=== PATIENT | female | born 1955 | race Caucasian/White ===

== ENCOUNTER 2016-11-26 01:26 | Inpatient (IN) | payer BC ==
[2016-11-26] VITALS (7 sets, daily range): BP systolic 91–148; BP diastolic 57–85; PULSE 81–111; TEMP 36.5–37; O2SAT 93–96; Ht 167.6 cm; Wt 123.3 kg
[~2016-11-26] VITALS: Ht 167.6 cm; Wt 123.3 kg
[2016-11-26] MEDS ORDERED: NITROGLYCERIN 0.4 MG SL PER TAB CHARGE SL PRN (04:00)
[2016-11-26] MEDS ORDERED: ACETAMINOPHEN 325 MG TAB PO PRN (04:00)
[2016-11-26] MEDS ORDERED: ALUMINUM/MAGNESIUM/SIMETH (MAALOX MAX) 30 ML UDC PO PRN (04:00)
[2016-11-26] MEDS ORDERED: MAGNESIUM HYDROXIDE SUSP 30 ML UDC PO PRN (04:00)
[2016-11-26] MEDS ORDERED: MoRPHine SULFATE 2 MG/ML CARP IV PRN (04:00)
[2016-11-26] MEDS ORDERED: ONDANSETRON INJ 2 MG/ML 2 ML VIAL IV PRN (04:00)
--- NOTE | 2016-11-26 04:14 | History and Physical ---
History & Physical Date & Time of Service: Nov 26, 2016 at 04:02 Chief Complaint: Bilateral Pe, Elevated Troponin Primary Care Physician: Ean Jacobs M.D. History of Present Illness Source: patient, hospital records This is a 61 yo f that is presenting to us from [facility] because of pulmonary emboli. She states that at [id number] today she was walking from the [place]oroast[place] to the car and acutely was SOB. when she reached the car it took her a few minutes to catch her breath. She also felt dizzy with this episode. She drove home with her and when she once again tried to exert herself she was acutely SOB. She was concerned she was having an VA so she took two ASA at home and went to the ED. In the ED she was evaluated and found to have bilateral PE and a slightly elevated troponin. She was given 100 mg of Lovenox at 2343. the hospitalist was contacted and because of the slight elevation in troponin and potential for cath he requested a transfer. She states she feels well without chest pain currently and comfortable on 2 L of oxygen. She mentions that she has a significant family history of antiphospholipid syndrome. Her brother and sister both have this as well as her son. She was tested extensively with [facility] hematology and no anticoag disorders were noted. She has never had a PE/ DVT in the past. She had a hysterectomy and is not on estrogen. She does not smoke. No recent extended travel. Past Medical/Surgical History HTN Depression Thyroid Elevated chol hysterectomy lumpectomy Social History Smoking Status: Never Smoker Smokeless Tobacco Use: No Alcohol Use: occasionally Drug Use: none Marital Status: Housing status: lives with family Occupational Status: retired Allergies Coded Allergies: No Known Allergies (Unverified , 11/26/16) Home Medications Scheduled Bupropion (Wellbutrin-Xl), 150 MG PO DAILY Hydrochlorothiazide (Hctz), 25 MG PO DAILY Latanoprost (Xalatan 0.005% Oph Kaylene), 1 DROPS OP HS Levothyroxine Sodium (Synthroid), 75 MCG PO DAILYBB Lovastatin (Mevacor), 40 MG PO PM Magnesium Oxide (Mag-Ox), 400 MG PO HS Meloxicam (Mobic), 15 MG PO PM Metoprolol Tartrate (Lopressor) (Lopressor), 25 MG PO BID [Lovaza], 1 GM BID Review of Systems Constitutional: No fever Eyes: No worsening of vision ENT: No hearing loss Respiratory: + dyspnea on exertion, + shortness of breath, No cough, No dyspnea at rest, No hemoptysis, No sputum, No wheezing Cardiovascular: No chest pain Abdomen: No constipation, No diarrhea, No nausea, No pain, No vomiting Musculoskeletal: No joint pain, No muscle pain Genitourinary - Female: No dysuria, No hematuria Neurologic: No balance problems, No memory loss, No numbness/tingling, No weakness Psychiatric: No anxiety, No depression symptoms Endocrine: No fatigue Integumentary: No rash Physical Exam General Appearance: WD/WN, no apparent distress, + obese Head: normocephalic, atraumatic Eyes: normal inspection ENT: normal ENT inspection Neck: supple Respiratory/Chest: lungs clear, normal breath sounds, no respiratory distress, no accessory muscle use Cardiovascular: regular rate, rhythm, no murmur Abdomen/GI: normal bowel sounds, non tender, soft Back: normal inspection Extremities/Musculoskelatal: normal inspection, no calf tenderness, + pedal edema (trace pedal edema) Neurologic/Psych: alert, normal mood/affect, oriented x 3 Skin: normal color, warm/dry, no rash Lymphatic: no adenopathy Diagnostics Diagnostic Radiology CT from [facility] revealed filling defects reflective of bilat PE, no infarcts noted EKG bpm 102, qtc 484 sinus tach NSR Impression Assessment and Plan This is a 61 yo f with HTN, hypothyroidism, and a family h/o antiphospholipid syndrome presenting to us from [facility] with elevated troponin and bilateral PE. Acute hypoxic respiratory failure secondary to bilat PE - tele admission - bilat doppler - Lovenox was given at approx 2343, will hold off heparin bolus vs NOAC until 1200 - PT INR PTT - CBC - EKG repeat - CT scan will be sent to radio for upload - NPO Elevated Troponin most likely secondary to right heart strain - repeat troponin and trend - echo Hypokalemia - NSS with KCL - hold HCTZ for now - repeat BMP Hypothyroidism -cont synthroid HTN cont metoprolol, hold HCTZ for now H/O SVT - cont metoprolol Hypercholesterolemia - cont lovastatin DVT Prophylaxis - PE treatment will cover FULL CODE Level of Care Telemetry Resuscitation Status FULL RESUSCITATION VTE Prophylaxis VTE Risk Assessment Done? Y/N: Yes Risk Level: Moderate Given or contraindicated: Other Anticoagulation Social Service Consult None Apply Note Total Time: Critical Care 30 - 74 minutes Additional Copies To Ean Jacobs M.D. Assessment and Plan Attending Addendum: I have physically seen and examined this patient, have directed their medical care, have supervised the medical residents activities, and agree with the H&P as noted above, with the following changes: NONE The patient is awake, well-developed and adequately nourished, alert and oriented 3, normocephalic and atraumatic, lying in bed and in no acute distress. HEENT--PERRL, EOMI, mucous membranes and oropharynx moist. Neck--supple, no JVD or bruits, thyroid normal, trachea midline, no adenopathy. Heart--normal S1 and S2, no extra beats, no murmurs, rubs or gallops. Lungs--clear bilaterally with good air movement, no respiratory distress, no accessory muscle use. Abdomen--normal bowel sounds and soft, nontender and nondistended, no hernias or masses, no organomegaly. Extremities--no cyanosis, clubbing or edema. There are good distal pulses b/l. Dermatologic--normal skin turgor, normal color, warm and dry, no abnormal lymph nodes, no rash. Neurologic--cranial nerves II through XII grossly intact, motor and sensory examination normal. Rheumatologic--normal range of motion, nontender, muscles and joints. Psychiatric--normal affect. Assessment and Plan: Bilateral pulmonary emboli--patient is being admitted to the telemetry unit after transfer from [facility]. She is being scheduled for stat bilateral lower extremity venous Dopplers to assess for DVT. She did receive a single dose of Lovenox 100 mg subcutaneous while in the [facility] emergency department. She will be changed to heparin standard infusion with protocol once the Lovenox is worn off, until it's been determine the exact nature of her cardiac involvement. Elevated troponin/SVT/hypertension/hypokalemia--patient is being admitted to the telemetry unit for serial cardiac enzymes, cardiac rhythm monitoring and a 2 -D echocardiogram with Dopplers. Her elevated troponin is likely secondary to right heart strain, and at that so, no additional workup will be needed. We'll consult cardiology for their opinion as well. We'll continue current dosing of metoprolol, and will hold HCTZ due to mildly low potassium at this time. We'll place on low-dose normal saline with potassium and follow serial BMP and magnesium levels. Hypercholesterolemia--continue lovastatin. Hypothyroidism--continue current dosing of Synthroid.
[2016-11-26] MEDS ORDERED: PATIENT'S ALLERGY INFO NEEDS ENTERED SCH (04:15)
[2016-11-26 04:59] LABS: BASO % 0.2 %; BASO ABS # 0.02 K/uL (0-0.2); COMPLETE YES; EOS % 4.3 %; HEMATOCRIT 42.4 % (37-47); IG% 0.2 %; LYMPH % 34.6 %; MEAN CELL VOLUME 83.1 fL (80-100); MEAN CORPUSCULAR HEMOGLOBIN 28.8 pg (25-34); MEAN CORPUSCULAR HGB CONC 34.7 g/dl (32-36); MONO % 3.3 %; NEUT % 57.4 %; PLATELET COUNT 269 K/uL (130-400); WHITE BLOOD COUNT 8.37 K/uL (4.8-10.8)
[2016-11-26] MEDS ORDERED: LEVO75TA PO (05:01)
[2016-11-26] MEDS ORDERED: BUPRTAB51 PO (05:03)
[2016-11-26] MEDS ORDERED: HYDR25TA4 PO (05:04)
[2016-11-26] MEDS ORDERED: LOVAZA (05:06)
[2016-11-26] MEDS ORDERED: LOVA40TA4 PO (05:07)
[2016-11-26] MEDS ORDERED: METO25TA56 PO (05:07)
[2016-11-26] MEDS ORDERED: MELO7.5T5 PO (05:08)
[2016-11-26] MEDS ORDERED: MAGN400T6 PO (05:09)
[2016-11-26] MEDS ORDERED: LATA0.5S OP (05:10)
[2016-11-26 05:21] LABS: ALT/SGPT 42 U/L (12-78); AST/SGOT 23 U/L (15-37); BLOOD UREA NITROGEN 11 mg/dl (7-18); BUN/CREATININE RATIO 11.3 (10-20); CALCIUM 8.8 mg/dl (8.5-10.1); CARBON DIOXIDE 31 mmol/L (21-32); CHLORIDE 106 mmol/L (98-107); CREATININE 0.94 mg/dl (0.60-1.20); GLUCOSE 110 mg/dl (70-99); POTASSIUM 3.7 mmol/L (3.5-5.1); SODIUM 145 mmol/L (136-145)
[2016-11-26 05:23] LABS: ALB/GLOB RATIO 1.1 (0.9-2); ALKALINE PHOSPHATASE 103 U/L (45-117)
[2016-11-26] MEDS: NSS + 20MEQ KCL 1000ML 1,000 ML IV SCH ×2 (05:25→13:08)
[2016-11-26 05:27] LABS: PROTHROMBIN TIME (PATIENT) 10.9 SECONDS (9.0-12.0)
[2016-11-26] MEDS: LEVOTHYROXINE 75 MCG TAB PO SCH (06:12)
--- NOTE | 2016-11-26 06:37 | DIAGNOSTIC IMAGING REPORT ---
ULTRASOUND VENOUS DOPPLER LWR EXT BILA CLINICAL HISTORY: Bilateral pulmonary embolism BILATERAL LEG PAIN COMPARISON STUDY: No previous studies for comparison. FINDINGS: On the right, no intraluminal thrombus was visualized. The veins are fully compressible from the groin to the popliteal vein. There is normal augmentation. There is normal color-flow the proximal trifurcation veins of the right calf. On the left, there is nonocclusive thrombus with the distal superficial femoral vein. There is occlusive thrombus within the left popliteal vein. There is thrombus in the posterior tibial, peroneal and 1 of 2 anterior tibial veins. There is a left popliteal cyst measuring 79 x 20 x 40 mm. IMPRESSION: 1. Acute left lower extremity DVT 2. No evidence of right lower extremity DVT 3. Left popliteal cyst Electronically signed by: Mikie Donahue M.D. 11/26/2016 6:35 AM Dictated Date/Time: 11/26/2016 6:33 AM
[2016-11-26] MEDS: METOPROLOL TARTRATE 50 MG TAB PO SCH ×2 (08:52→21:20)
[2016-11-26] MEDS: BuPROPion XL 150 MG TABCR PO SCH (08:52)
[2016-11-26] MEDS ORDERED: BuPROPion XL 300 MG TABCR PO SCH (09:00)
[2016-11-26] MEDS: ENOXAPARIN 120 MG/0.8 ML SYR SQ SCH ×2 (09:56→21:21)
[2016-11-26] MEDS ORDERED: NURSING VERBAL MED ORDER ONE (11:45)
[2016-11-26] MEDS ORDERED: ZOLPIDEM TARTRATE 5 MG TAB PO PRN (12:00)
[2016-11-26] MEDS: HYDROCHLOROTHIAZIDE 25 MG TAB PO SCH (14:23)
--- NOTE | 2016-11-26 14:30 | ECHOCARDIOGRAM REPORT ---
*NOTICE TO RECEIVING LIBERTARIAN AGENCY This information is strictly Confidential and protected under [place] law. [place] law prohibits you from making any further disclosure of this information unless further disclosure is expressly permitted by the written consent of the person to whom it pertains or is authorized by law. A general authorization for the release of medical or other information is not sufficient for this purpose. Hospital accepts no responsibility if the information is made available to any other person, INCLUDING THE PATIENT. Interpretation Summary * Name: ZBIGNIEW DOVE Study Date: 11/26/2016 08:27 AM BP: 148/63 mmHg * Patient Location: C.2T\S\S236\S\1 HR: 103 * : 1955 (M/d/yyyy) Gender: Female * Age: 61 yrs Ethnicity: CA * Ordering Physician: Blanca Lopez * Performed By: Janneth Bernard RCS * * Reason For Study: ELEVATED TROPONIN * -- Conclusions -- * Normal LV chamber size with mild concentric LVH. * Normal LV systolic function, EF 60-65%. * Flattened septum is consistent with RV pressure/volume overload, otherwise, no segmental left ventricular wall motion abnormalities are noted. * Grade I diastolic dysfunction. * The right ventricular cavity size is enlarged (proximal parasternal long axis right ventricular outflow tract dimension >3.3 cm). * The right ventricular systolic function is normal as assessed by tricuspid annular plane systolic excursion (TAPSE) (normal >1.5 cm). * No significant valvular pathology. * No previous studies available for comparison. Procedure Details * A complete two-dimensional transthoracic echocardiogram was performed (2D, M-mode, Doppler and color flow Doppler). Left Ventricle * The left ventricle is normal in size. * There is mild concentric left ventricular hypertrophy. * Left ventricular systolic function is normal. * No segmental left ventricular wall motion abnormalities are noted. * Ejection Fraction = 60-65%. * Flattened septum is consistent with RV pressure/volume overload. Right Ventricle * The right ventricular cavity size is enlarged (proximal parasternal long axis right ventricular outflow tract dimension >3.3 cm). * The right ventricular systolic function is normal as assessed by tricuspid annular plane systolic excursion (TAPSE) (normal >1.5 cm). Atria * The left atrial size is normal. * Right atrial size is normal. * No ASD detected; PFO is not assessed. Mitral Valve * The mitral valve is normal in structure and function. Tricuspid Valve * The tricuspid valve is normal in structure and function. Aortic Valve * The aortic valve is normal in structure and function. Pulmonic Valve * The pulmonary valve is not well seen, but the Doppler examination is normal without significant regurgitation or stenosis. Great Vessels * The aortic root is normal size. Pericardium/Pleural * There is no pericardial effusion. Left Ventricular Diastolic Function * Grade I diastolic dysfunction, (abnormal relaxation pattern). MMode 2D Measurements and Calculations IVSd 1.5 cm IVSs 1.9 cm LVIDd 3.6 cm LVIDs 2.1 cm LVPWd 1.3 cm LVPWs 1.3 cm IVS/LVPW 1.1 FS 42.0 % EDV(Teich) 55.4 ml ESV(Teich) 14.4 ml EF(Teich) 73.9 % EDV(cubed) 47.7 ml ESV(cubed) 9.3 ml EF(cubed) 80.5 % % IVS thick 28.9 % % LVPW thick 2.0 % LV mass(C)d 182.9 grams LV mass(C)s 121.9 grams SV(Teich) 41.0 ml SV(cubed) 38.4 ml Ao root diam 4.1 cm Ao root area 13.2 cm\S\2 ACS 2.2 cm LA dimension 3.3 cm LA/Ao 0.80 LVOT diam 1.9 cm LVOT area 2.7 cm\S\2 LVAd ap4 20.3 cm\S\2 LVLd ap4 7.4 cm EDV(MOD-sp4) 44.3 ml EDV(sp4-el) 47.1 ml LVAs ap4 10.5 cm\S\2 LVLs ap4 5.5 cm ESV(MOD-sp4) 16.4 ml ESV(sp4-el) 16.9 ml EF(MOD-sp4) 62.9 % EF(sp4-el) 64.2 % LVAd ap2 20.1 cm\S\2 LVLd ap2 6.6 cm EDV(MOD-sp2) 49.5 ml EDV(sp2-el) 51.8 ml LVAs ap2 10.3 cm\S\2 LVLs ap2 5.7 cm ESV(MOD-sp2) 17.7 ml ESV(sp2-el) 15.9 ml EF(MOD-sp2) 64.3 % EF(sp2-el) 69.3 % LVLd %diff -11.48 % EDV(MOD-bp) 48.4 ml LVLs %diff 3.0 % ESV(MOD-bp) 16.8 ml EF(MOD-bp) 65.3 % SV(MOD-sp4) 27.9 ml SV(MOD-sp2) 31.9 ml SV(MOD-bp) 31.6 ml SV(sp4-el) 30.2 ml SV(sp2-el) 35.9 ml Doppler Measurements and Calculations Ao V2 max 107.1 cm/sec Ao max PG 4.6 mmHg Ao max PG (full) 1.2 mmHg VINICIUS(V,A) 2.3 cm\S\2 VINICIUS(V,D) 2.3 cm\S\2 LV V1 max PG 3.4 mmHg LV V1 max 91.6 cm/sec TR max stephanie 255.4 cm/sec
--- NOTE | 2016-11-26 15:04 | Progress Note ---
Subjective Date of Service: Nov 26, 2016. Subjective Pt evaluation today including: conversation w/ patient, physical exam, lab review, review of studies, review of inpatient medication list Pain: no chest pain PO Intake: adequate Voiding: no voiding problems reviewed presentation to [facility], 24 hours of dyspnea on exertion started at home going up stairs, then she struggled walking from her car into her mosque, then from car into home very atypical for her every month [place] her parents, she says she stops every hour and walks around no plane rides, no hospitalizations, no surgeries she was sick a few weeks ago with flu, in bed for 2 days has a family history of VTE with a son and siblings she was tested for hypercoagulability in the past with hematology, no mutations found up to date on mammograms, she has NEVER had a colonoscopy so over due for colon CA screening currently she is feeling fine, just very tired due to lack of sleep no chest pain, no hemoptysis, no dyspnea at rest denies left leg pain or swelling, discussed findings of left leg DVT Review of Systems Respiratory: + dyspnea on exertion, + shortness of breath All Other Systems: Reviewed and Negative Medications Current Inpatient Medications Medications (Trade) Dose Ordered Sig/Dede Route Start Time Stop Time Status Last Admin Dose Admin Potassium Chloride/Sodium Chloride (Nss + 20meq KCl 1000ml) 1,000 ml @ 125 mls/hr Q8H IV 11/26/16 05:15 11/27/16 05:14 11/26/16 13:08 125 MLS/HR Acetaminophen (Tylenol Tab) 650 mg Q4H PRN PO 11/26/16 04:00 12/26/16 03:59 Al Hydrox/Mg Hydrox/Simethicone (Maalox Max Susp) 15 ml Q4H PRN PO 11/26/16 04:00 12/26/16 03:59 Magnesium Hydroxide (Milk Of Magnesia Susp) 30 ml Q12H PRN PO 11/26/16 04:00 12/26/16 03:59 Ondansetron HCl (Zofran Inj) 4 mg Q6H PRN IV 11/26/16 04:00 12/26/16 03:59 Nitroglycerin (Nitrostat Tab) 0.4 mg UD PRN SL 11/26/16 04:00 12/26/16 03:59 Morphine Sulfate (MoRPHine SULFATE INJ) 2 mg Q30M PRN IV 11/26/16 04:00 12/10/16 03:59 Levothyroxine Sodium (Synthroid Tab) 75 mcg DAILYBB PO 11/26/16 06:00 12/26/16 05:59 11/26/16 06:12 75 MCG Metoprolol Tartrate (Lopressor Tab) 50 mg BID PO 11/26/16 09:00 12/26/16 08:59 11/26/16 08:52 50 MG Bupropion HCl (Wellbutrin-Xl Tab) 150 mg DAILY PO 11/26/16 09:00 12/26/16 08:59 11/26/16 08:52 150 MG Enoxaparin Sodium (Lovenox Inj) 120 mg Q12H SQ 11/26/16 09:00 12/26/16 08:59 11/26/16 09:56 120 MG Hydrochlorothiazide (Hydrochlorothiazide Tab) 25 mg DAILY PO 11/26/16 13:00 12/26/16 12:59 11/26/16 14:23 25 MG Meloxicam (Mobic Tab) 15 mg HS PO 11/26/16 21:00 12/26/16 20:59 Zolpidem Tartrate (Ambien Tab) 5 mg HSZ PRN PO 11/26/16 12:00 12/26/16 11:59 Objective Vital Signs Date Time Temp Pulse Resp B/P Pulse Ox O2 Delivery O2 Flow Rate FiO2 11/26/16 12:00 Nasal Cannula 2.0 11/26/16 11:05 36.5 87 20 114/79 96 Nasal Cannula 2.0 11/26/16 08:27 36.8 104 20 134/85 95 Nasal Cannula 2.0 11/26/16 08:00 Nasal Cannula 2.0 11/26/16 04:48 95 Nasal Cannula 2.0 11/26/16 04:04 36.8 111 24 148/63 96 Nasal Cannula 2.0 Physical Exam General Appearance: WD/WN, no apparent distress ENT: normal ENT inspection, hearing grossly normal, pharynx normal Neck: supple, no adenopathy, no JVD, trachea midline Respiratory/Chest: chest non-tender, lungs clear, normal breath sounds, no respiratory distress, no accessory muscle use Cardiovascular: no edema, no gallop, no JVD, no murmur, + tachycardia Abdomen: normal bowel sounds, non tender, soft, no organomegaly Extremities: normal range of motion, non-tender, normal inspection, no pedal edema, no calf tenderness, pelvis stable Neurologic/Psychiatric: serials librarian II-XII nml as tested, no motor/sensory deficits, alert, normal mood/affect, oriented x 3 Skin: normal color, warm/dry, no rash Lymphatic: no adenopathy Laboratory Results Last 24 Hours Test 11/26/16 04:39 11/26/16 06:11 11/26/16 14:39 White Blood Count 8.37 K/uL Red Blood Count 5.10 M/uL Hemoglobin 14.7 g/dL Hematocrit 42.4 % Mean Corpuscular Volume 83.1 fL Mean Corpuscular Hemoglobin 28.8 pg Mean Corpuscular Hemoglobin Concent 34.7 g/dl Platelet Count 269 K/uL Mean Platelet Volume 9.0 fL Neutrophils (%) (Auto) 57.4 % Lymphocytes (%) (Auto) 34.6 % Monocytes (%) (Auto) 3.3 % Eosinophils (%) (Auto) 4.3 % Basophils (%) (Auto) 0.2 % Neutrophils # (Auto) 4.79 K/uL Lymphocytes # (Auto) 2.90 K/uL Monocytes # (Auto) 0.28 K/uL Eosinophils # (Auto) 0.36 K/uL Basophils # (Auto) 0.02 K/uL RDW Standard Deviation 43.1 fL RDW Coefficient of Variation 14.2 % Immature Granulocyte % (Auto) 0.2 % Immature Granulocyte # (Auto) 0.02 K/uL Prothrombin Time 10.9 SECONDS Prothromb Time International Ratio 1.0 Activated Partial Thromboplast Time 26.7 SECONDS Partial Thromboplastin Ratio 1.0 Sodium Level 145 mmol/L Potassium Level 3.7 mmol/L Chloride Level 106 mmol/L Carbon Dioxide Level 31 mmol/L Anion Gap 8.0 mmol/L Blood Urea Nitrogen 11 mg/dl Creatinine 0.94 mg/dl Estimated GFR () 74.8 Estimated GFR (Non- 64.6 BUN/Creatinine Ratio 11.3 Random Glucose 110 mg/dl Calcium Level 8.8 mg/dl Total Bilirubin 0.5 mg/dl Aspartate Amino Transf (AST/SGOT) 23 U/L Alanine Aminotransferase (ALT/SGPT) 42 U/L Alkaline Phosphatase 103 U/L Total Protein 6.8 gm/dl Albumin 3.5 gm/dl Globulin 3.3 gm/dl Albumin/Globulin Ratio 1.1 Troponin I 0.698 ng/ml Assessment and Plan This is a 61 yo f with HTN, hypothyroidism, and a family h/o antiphospholipid syndrome presenting to us from [facility] with elevated troponin and bilateral PE. Acute hypoxic respiratory failure secondary to bilateral PE (right all three lobes, left lower lobe, both sides extending to main pulmonary arteries, no saddle embolus) - from her history, this seems unprovoked, it is submassive since BP is normal - echocardiogram: RV volume overload and strain, consistent with PE - will treat with Lovenox 1mg/kg q12 - ultimately will treat with Xarelto 15mg BID x 3 weeks and then 20mg daily - will need 6-12 months minimum - hypercoagulability has been tested in past, negative work up - ideally should have colonoscopy in the future, but that will need to be deferred while taking Xarelto - keep on telemetry for 36-48 more hours due to large clot burden and RV strain Acute DVT left leg: Lovenox and then Xarelto Elevated Troponin most likely secondary to right heart strain - normal LV function on echo, no signs of ischemia on EKG - can cycle enzymes but no plans for cardiology consult, patient can eat Hypokalemia - resolved with IV replacement, will stop fluids, eating and drinking well Hypothyroidism -cont synthroid HTN cont metoprolol, hold HCTZ for now H/O SVT - cont metoprolol Hypercholesterolemia - cont lovastatin DVT Prophylaxis - PE treatment will cover FULL CODE
[2016-11-26] MEDS: MELOXICAM 7.5 MG TAB PO SCH (21:20)
[2016-11-27 04:42] VITALS: BP 100/68; PULSE 84; TEMP 37; O2SAT 95
[2016-11-27 06:17] LABS: BASO % 0.2 %; BASO ABS # 0.01 K/uL (0-0.2); COMPLETE YES; EOS % 6.6 %; HEMATOCRIT 40.9 % (37-47); IG% 0.2 %; LYMPH % 41.5 %; LYMPH ABS # 2.53 K/uL (1.2-3.4); MEAN CELL VOLUME 84.2 fL (80-100); MEAN CORPUSCULAR HEMOGLOBIN 29.2 pg (25-34); MEAN CORPUSCULAR HGB CONC 34.7 g/dl (32-36); MEAN PLATELET VOLUME 9.2 fL (7.4-10.4); MONO % 5.1 %; NEUT % 46.4 %; PLATELET COUNT 252 K/uL (130-400); RED BLOOD COUNT 4.86 M/uL (4.2-5.4); WHITE BLOOD COUNT 6.09 K/uL (4.8-10.8)
[2016-11-27] MEDS: LEVOTHYROXINE 75 MCG TAB PO SCH (06:28)
[2016-11-27 07:14] LABS: BUN/CREATININE RATIO 12.2 (10-20); CALCIUM 8.9 mg/dl (8.5-10.1); CREATININE 0.89 mg/dl (0.60-1.20); POTASSIUM 3.3 mmol/L (3.5-5.1)
[2016-11-27 07:23] VITALS: BP 133/80; PULSE 80; TEMP 36.8; O2SAT 98
[2016-11-27] MEDS: BuPROPion XL 150 MG TABCR PO SCH (07:50)
[2016-11-27] MEDS: HYDROCHLOROTHIAZIDE 25 MG TAB PO SCH (07:50)
[2016-11-27] MEDS: ENOXAPARIN 120 MG/0.8 ML SYR SQ SCH (07:51)
[2016-11-27] MEDS: METOPROLOL TARTRATE 50 MG TAB PO SCH ×2 (07:51→20:46)
[2016-11-27 11:33] VITALS: BP 123/83; PULSE 76; TEMP 36.6; O2SAT 94
--- NOTE | 2016-11-27 12:21 | Progress Note ---
Subjective Date of Service: Nov 27, 2016. Subjective Pt evaluation today including: conversation w/ patient, physical exam, review of studies, review of inpatient medication list Pain: no pain PO Intake: adequate Voiding: no voiding problems patient feeling slightly better today, less shortness of breath, no chest pain very tired, sleeping all day, says that she is catching up on some sleep discussed plan for going home tomorrow on Melanie, she agrees with this plan Review of Systems Constitutional: + fatigue Respiratory: + dyspnea on exertion All Other Systems: Reviewed and Negative Medications Current Inpatient Medications Medications (Trade) Dose Ordered Sig/Dede Route Start Time Stop Time Status Last Admin Dose Admin Acetaminophen (Tylenol Tab) 650 mg Q4H PRN PO 11/26/16 04:00 12/26/16 03:59 Al Hydrox/Mg Hydrox/Simethicone (Maalox Max Susp) 15 ml Q4H PRN PO 11/26/16 04:00 12/26/16 03:59 Magnesium Hydroxide (Milk Of Magnesia Susp) 30 ml Q12H PRN PO 11/26/16 04:00 12/26/16 03:59 Ondansetron HCl (Zofran Inj) 4 mg Q6H PRN IV 11/26/16 04:00 12/26/16 03:59 Nitroglycerin (Nitrostat Tab) 0.4 mg UD PRN SL 11/26/16 04:00 12/26/16 03:59 Morphine Sulfate (MoRPHine SULFATE INJ) 2 mg Q30M PRN IV 11/26/16 04:00 12/10/16 03:59 Levothyroxine Sodium (Synthroid Tab) 75 mcg DAILYBB PO 11/26/16 06:00 12/26/16 05:59 11/27/16 06:28 75 MCG Metoprolol Tartrate (Lopressor Tab) 50 mg BID PO 11/26/16 09:00 12/26/16 08:59 11/27/16 07:51 50 MG Bupropion HCl (Wellbutrin-Xl Tab) 150 mg DAILY PO 11/26/16 09:00 12/26/16 08:59 11/27/16 07:50 150 MG Hydrochlorothiazide (Hydrochlorothiazide Tab) 25 mg DAILY PO 11/26/16 13:00 12/26/16 12:59 11/27/16 07:50 25 MG Meloxicam (Mobic Tab) 15 mg HS PO 11/26/16 21:00 12/26/16 20:59 11/26/16 21:20 15 MG Zolpidem Tartrate (Ambien Tab) 5 mg HSZ PRN PO 11/26/16 12:00 12/26/16 11:59 Rivaroxaban (Xarelto Tab) 15 mg BIDM PO 11/27/16 16:45 12/18/16 23:59 Objective Vital Signs Date Time Temp Pulse Resp B/P Pulse Ox O2 Delivery O2 Flow Rate FiO2 11/27/16 11:33 36.6 76 18 123/83 94 Room Air 11/27/16 08:00 Nasal Cannula 2.0 11/27/16 07:23 36.8 80 18 133/80 98 2.0 11/27/16 04:42 37.0 84 18 100/68 95 Room Air 11/27/16 04:09 BiPAP 11/27/16 00:47 BiPAP 11/26/16 23:47 37.0 81 18 91/57 93 Room Air 11/26/16 20:45 Nasal Cannula 2.0 11/26/16 19:55 36.6 99 18 100/66 94 Room Air 11/26/16 16:00 Nasal Cannula 2.0 11/26/16 15:24 36.5 85 20 118/77 95 Room Air Physical Exam General Appearance: WD/WN, no apparent distress Eyes: normal inspection, EOMI, sclerae normal ENT: normal ENT inspection, hearing grossly normal, pharynx normal Neck: supple, no adenopathy, no JVD, trachea midline Respiratory/Chest: chest non-tender, lungs clear, normal breath sounds, no respiratory distress, no accessory muscle use Cardiovascular: regular rate, rhythm, no edema, no gallop, no JVD, no murmur Abdomen: normal bowel sounds, non tender, soft, no organomegaly Extremities: normal range of motion, non-tender, normal inspection, no pedal edema, no calf tenderness, pelvis stable 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, no motor/sensory deficits, alert, normal mood/affect, oriented x 3 Skin: normal color, warm/dry, no rash Laboratory Results Last 24 Hours Test 11/26/16 14:39 11/26/16 21:56 11/27/16 05:57 Troponin I 0.450 ng/ml 0.346 ng/ml White Blood Count 6.09 K/uL Red Blood Count 4.86 M/uL Hemoglobin 14.2 g/dL Hematocrit 40.9 % Mean Corpuscular Volume 84.2 fL Mean Corpuscular Hemoglobin 29.2 pg Mean Corpuscular Hemoglobin Concent 34.7 g/dl Platelet Count 252 K/uL Mean Platelet Volume 9.2 fL Neutrophils (%) (Auto) 46.4 % Lymphocytes (%) (Auto) 41.5 % Monocytes (%) (Auto) 5.1 % Eosinophils (%) (Auto) 6.6 % Basophils (%) (Auto) 0.2 % Neutrophils # (Auto) 2.83 K/uL Lymphocytes # (Auto) 2.53 K/uL Monocytes # (Auto) 0.31 K/uL Eosinophils # (Auto) 0.40 K/uL Basophils # (Auto) 0.01 K/uL RDW Standard Deviation 44.2 fL RDW Coefficient of Variation 14.3 % Immature Granulocyte % (Auto) 0.2 % Immature Granulocyte # (Auto) 0.01 K/uL Sodium Level 144 mmol/L Potassium Level 3.3 mmol/L Chloride Level 104 mmol/L Carbon Dioxide Level 27 mmol/L Anion Gap 13.0 mmol/L Blood Urea Nitrogen 11 mg/dl Creatinine 0.89 mg/dl Est Creatinine Clear Calc Drug Dose 86.7 ml/min Estimated GFR () 79.9 Estimated GFR (Non- 69.0 BUN/Creatinine Ratio 12.2 Random Glucose 91 mg/dl Calcium Level 8.9 mg/dl Assessment and Plan This is a 61 yo f with HTN, hypothyroidism, and a family h/o antiphospholipid syndrome presenting to us from [facility] with elevated troponin and bilateral PE. Acute hypoxic respiratory failure secondary to bilateral PE (right all three lobes, left lower lobe, both sides extending to main pulmonary arteries, no saddle embolus) - from her history, this seems unprovoked, it is submassive since BP is normal - echocardiogram: RV volume overload and strain, consistent with PE - will treat with Lovenox 1mg/kg q12 - ultimately will treat with Xarelto 15mg BID x 3 weeks and then 20mg daily - start with Xarelto 15mg tonight, no further Lovenox - will need 6-12 months minimum - hypercoagulability has been tested in past, negative work up - ideally should have colonoscopy in the future, but that will need to be deferred while taking Xarelto - keep on telemetry overnight due to large clot burden and RV strain, d/c home tomorrow - weaned off oxygen today Acute DVT left leg: Lovenox and then Xarelto Elevated Troponin most likely secondary to right heart strain - normal LV function on echo, no signs of ischemia on EKG - can cycle enzymes but no plans for cardiology consult, patient can eat Hypokalemia - resolved with IV replacement, will stop fluids, eating and drinking well Hypothyroidism -cont synthroid HTN cont metoprolol, hold HCTZ for now H/O SVT - cont metoprolol Hypercholesterolemia - cont lovastatin DVT Prophylaxis - PE treatment will cover FULL CODE
[2016-11-27 15:56] VITALS: BP 124/77; PULSE 83; TEMP 36.5; O2SAT 93
[2016-11-27] MEDS: RIVAROXABAN TAB 15 MG TAB PO SCH (16:59)
[2016-11-27 19:00] VITALS: BP 140/82; PULSE 92; TEMP 36.9; O2SAT 94
[2016-11-27] MEDS: MELOXICAM 7.5 MG TAB PO SCH (20:46)
[2016-11-27 23:34] VITALS: BP 138/81; PULSE 92; TEMP 36.7; O2SAT 93
[2016-11-28] VITALS: O2SAT 93
[2016-11-28 04:00] VITALS: O2SAT 93
[2016-11-28 04:06] VITALS: BP 130/75; PULSE 80; TEMP 36.5; O2SAT 95
[2016-11-28] MEDS: LEVOTHYROXINE 75 MCG TAB PO SCH (06:04)
[2016-11-28 07:00] VITALS: BP 142/79; PULSE 79; TEMP 36.4; O2SAT 96
[2016-11-28] MEDS ORDERED: RIVA1TAB4 PO (07:34)
[2016-11-28] MEDS ORDERED: XRL15 PO (07:34)
--- NOTE | 2016-11-28 07:45 | Discharge Instructions ---
Discharge Instructions Admission Reason for Admission: Bilateral Pe, Elevated Troponin Discharge Discharge Diagnosis / Problem: (1) Bilateral pulmonary embolism (2) DVT (deep venous thrombosis) VTE Date & Time Date of VTE Diagnosis: Nov 26, 2016 Time of VTE Diagnosis: 02:00 Discharge Goals Goal(s): Improve function, Improve disease control, Prevent Disease Progression Activity Recommendations Activity Limitations: resume your previous activity Lifting Limitations: none Exercise/Sports Limitations: as tolerated May Resume Sexual Activity: when tolerated Shower/Bathe: no limitations Driving or Machine Use: no limitations . Instructions / Follow-Up Instructions / Follow-Up Medication: XARELTO: you will take 15mg twice a day for 21 days then start taking 20mg daily , you will stay on this dose indefinitely since your clots were unprovoked you will be on Xarelto for 6-12 months minimum, do not stop taking Xarelto until told to do so by Dr. Jacobs Medication Instructions: Your condition is typically treated with an anticoagulant. Anticoagulants will thin your blood to help prevent new clots. * You should take her medication exactly as directed. * Never skip a dose. * Never take a double dose. If you miss a dose, take it as soon as you remember. Call your Primary Care doctor if you experience any of the following: * Swelling or Pain in your leg * Sudden, continuous pain deep in a muscle * Pain that worsens when you are active or when you stand still for a long time * Chest Pain * Sudden Shortness of Breath * Rapid or pounding heart beat * Fainting * Dizziness * Cough with blood or bloody sputum * Sweating more than normal * Bruises * Heavy or uncontrolled bleeding * Blood in your urine, stool or vomit * Black or tarry stools Caring for Your Self at Home: * Avoid sitting, standing or lying down for long periods without moving your legs and feet * When traveling by car, stop to get out and move around at least once every 3 hours * On long airplane, train or bus rides, get up and move around when possible * If you can't get up, wiggle your toes and tighten your calves to keep your blood moving Follow Up: It is important for you to keep your follow up appointments with your medical provider. Current Hospital Diet Patient's current hospital diet: AHA Diet (Heart Healthy) Discharge Diet Recommended Diet: AHA Diet (Heart Healthy) Procedures Procedures Performed: Echocardiogram: right ventricular strain, normal ejection fraction, LV function normal, no valve disease Venous doppler: + left LE DVT Pending Studies Studies pending at discharge: no Medical Emergencies . Who to Call and When: Medical Emergencies: If at any time you feel your situation is an emergency, please call 911 immediately. . Non-Emergent Contact Non-Emergency issues call your: Primary Care Provider Call Non-Emergent contact if: you have a fever, your pain is concerning you, you have any medication questions . Past History Medical & Surgical History: (1) Bilateral pulmonary embolism (2) DVT (deep venous thrombosis) . "Provider Documentation" section prepared by Gaurav Ignacio. VTE Core Measure Inpt VTE Proph given/why not?: Enoxaparin (Lovenox)SQ, Other Anticoagulation ( Xarelto) [place] Drug Monitoring Program Search Results: no issues identified
[2016-11-28] MEDS: RIVAROXABAN TAB 15 MG TAB PO SCH (08:11)
[2016-11-28] MEDS: BuPROPion XL 150 MG TABCR PO SCH (08:12)
[2016-11-28] MEDS: METOPROLOL TARTRATE 50 MG TAB PO SCH (08:12)
[2016-11-28] MEDS: HYDROCHLOROTHIAZIDE 25 MG TAB PO SCH (08:12)
--- NOTE | 2016-11-28 09:38 | Discharge Summary ---
Discharge Summary Admission Date: Nov 26, 2016 at 03:43 Discharge Date: Nov 28, 2016 Discharge Disposition: Home Principal Diagnosis: Bilateral pulmonary emboli Problems/Secondary Diagnoses: Left leg DVT Acute hypoxic respiratory failure Elevated troponin Right ventricular strain Procedures: Echocardiogram: RV strain, normal LV function Doppler: LE DVT Consultations: none Medication Reconciliation New Medications: Rivaroxaban (Xarelto) 20 Mg Tab 20 MG PO DAILY for 30 Days, #30 TABS 3 Refills Rivaroxaban (Xarelto) 15 Mg Tab 15 MG PO BIDM, #42 TAB 0 Refills Continued Medications: Bupropion (Wellbutrin-Xl) 300 Mg Tabcr 150 MG PO DAILY, TAB Hydrochlorothiazide (Hctz) 25 Mg Tab 25 MG PO DAILY, TAB Latanoprost (Xalatan 0.005% Oph Kaylene) 0.005 % Kaylene 1 DROPS OP HS, #7.5 ML 3 Refills Levothyroxine Sodium (Synthroid) 75 Mcg Tab 75 MCG PO DAILYBB, TAB Lovastatin (Mevacor) 40 Mg Tab 40 MG PO PM, TAB Magnesium Oxide (Mag-Ox) 400 Mg Tab 400 MG PO HS, TAB Meloxicam (Mobic) 7.5 Mg Tab 15 MG PO PM, TAB Metoprolol Tartrate (Lopressor) (Lopressor) 25 Mg Tab 25 MG PO BID, TAB [Lovaza] () 1 GM BID Discharge Exam Patient feeling well this AM, better than the night prior. Breathing more comfortably, less sensitive to exertion. No chest pain. Eating well. Ready for discharge. Review of Systems: Constitutional: No chills, No fatigue, No fever, No problem reported, No sweats, No weakness, No weight loss Eyes: No diplopia, No discharge, No eye pain, No problem reported, No redness, No worsening of vision ENT: No dental problems, No hearing loss, No nasal symptoms, No problem reported, No sore throat, No tinnitus, No trouble swallowing, No unusual epistaxis Respiratory: + dyspnea on exertion, No cough, No dyspnea at rest, No hemoptysis, No problem reported, No shortness of breath, No sputum, No wheezing Cardiovascular: No PND, No chest pain, No claudication, No edema, No orthopnea, No palpitations, No problem reported Abdomen: No GI bleeding, No constipation, No diarrhea, No nausea, No pain, No problem reported, No vomiting Genitourinary - Female: No dysuria, No hematuria, No urinary frequency, No urinary incontinence, No urinary retention, No urinary urgency Neurologic: No balance problems, No memory loss, No numbness/tingling, No paralysis, No problem reported, No vertigo, No weakness Psychiatric: No anhedonism, No anxiety, No depression symptoms, No insomnia , No problem reported, No substance abuse Endocrine: No excessive thirst, No excessive urination, No fatigue, No problem reported Hematologic / Lymphatic: No abnormal bleeding/bruising, No clotting problems , No night sweats, No problem reported, No swollen lymph nodes Integumentary: No bleeding, No color change, No itch, No new/changing skin lesions, No problem reported, No rash Physical Exam: General Appearance: WD/WN, no apparent distress Eyes: normal inspection, EOMI, sclerae normal ENT: normal ENT inspection, hearing grossly normal, pharynx normal Neck: supple, no adenopathy, no JVD, trachea midline Respiratory/Chest: chest non-tender, lungs clear, normal breath sounds, no respiratory distress, no accessory muscle use Cardiovascular: regular rate, rhythm, no edema, no gallop, no JVD, no murmur , normal peripheral pulses Abdomen / GI: normal bowel sounds, non tender, soft, no organomegaly Extremities: normal inspection, no calf tenderness, normal capillary refill , no pedal edema, normal range of motion, pelvis stable 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 Acute hypoxic respiratory failure secondary to bilateral PE (right all three lobes, left lower lobe, both sides extending to main pulmonary arteries, no saddle embolus) - from her history, this seems unprovoked, it is submassive since BP is normal - echocardiogram: RV volume overload and strain, consistent with PE - will treat with Lovenox 1mg/kg q12 initially - ultimately will treat with Xarelto 15mg BID x 3 weeks and then 20mg daily - start with Xarelto 15mg 11/27, no further Lovenox - d/c home on Xarelto 15mg BID x 3 weeks then 20mg daily - will need 6-12 months minimum - hypercoagulability has been tested in past, negative work up - ideally should have colonoscopy in the future, but that will need to be deferred while taking Xarelto - breathing comfortably on room air, no further hypoxia Acute DVT left leg: Lovenox and then Xarelto Elevated Troponin most likely secondary to right heart strain - normal LV function on echo, no signs of ischemia on EKG - troponin trended down Hypokalemia - resolved with IV replacement, will stop fluids, eating and drinking well Hypothyroidism -cont synthroid HTN cont metoprolol, hold HCTZ for now H/O SVT - cont metoprolol Hypercholesterolemia - cont lovastatin DVT Prophylaxis - PE treatment will cover FULL CODE Plan: d/c to home on Xarelto, follow up with PCP Total Time Spent: Greater than 30 minutes This includes examination of the patient, discharge planning, medication reconciliation, and communication with other providers. Discharge Instructions Please refer to the electronic Patient Visit Report (Discharge Instructions) for additional information. Follow-Up Dr Jacobs on 12/08, will call for appointment earlier if she feels like she needs to be seen Additional Copies To Ean Jacobs M.D.
[2016-11-28 10:22] VITALS: BP 142/79; PULSE 79; TEMP 36.4; O2SAT 96
== END 2016-11-28 11:15 | disposition home or self-care (01) | DRG 175 ==
LOC: C.2T 03:43
PROVIDERS: ADMIT Hospitalist; ATTEND Internal Medicine
DX: I26.99 Other pulmonary embolism without acute cor pulmonale (principal); J96.00 Acute respiratory failure, unspecified whether with hypoxia or hypercapnia; I82.402 Acute embolism and thrombosis of unspecified deep veins of left lower extremity; E03.9 Hypothyroidism, unspecified; E78.00 Pure hypercholesterolemia, unspecified; E87.6 Hypokalemia; I10 Essential (primary) hypertension; Z86.711 Personal history of pulmonary embolism

== ENCOUNTER 2016-12-01 11:05 | Emergency (ER) | payer BC ==
[~2016-12-01] VITALS: Ht 167.6 cm; Wt 123.0 kg
[~2016-12-01 11:05] MED LIST: BUPRTAB51 PO; HYDR25TA4 PO; LATA0.5S OP; LEVO75TA PO; LOVA40TA4 PO; LOVAZA; MAGN400T6 PO; MELO7.5T5 PO; METO25TA56 PO; RIVA1TAB4 PO; XRL15 PO
[2016-12-01 11:11] VITALS: TEMP 36.7; Ht 167.6 cm; Wt 123.0 kg
[2016-12-01 12:02] LABS: BASO % 0.1 %; BASO ABS # 0.01 K/uL (0-0.2); COMPLETE YES; HEMATOCRIT 42.9 % (37-47); IG% 0.4 %; LYMPH % 7.3 %; LYMPH ABS # 0.86 K/uL (1.2-3.4); MEAN CELL VOLUME 82.5 fL (80-100); MEAN CORPUSCULAR HEMOGLOBIN 29.8 pg (25-34); MEAN CORPUSCULAR HGB CONC 36.1 g/dl (32-36); MEAN PLATELET VOLUME 9.5 fL (7.4-10.4); MONO % 2.7 %; NEUT % 89.5 %; PLATELET COUNT 272 K/uL (130-400); WHITE BLOOD COUNT 11.73 K/uL (4.8-10.8)
[2016-12-01] MEDS ORDERED: SODIUM CHLORIDE 0.9% 500ML 500 ML IV STA (12:07)
[2016-12-01 12:10] LABS: CALCIUM 9.1 mg/dl (8.5-10.1); CREATININE 1.8 mg/dl (0.60-1.20); POTASSIUM 2.9 mmol/L (3.5-5.1)
[2016-12-01 12:13] LABS: ALB/GLOB RATIO 0.8 (0.9-2)
[2016-12-01] MEDS ORDERED: OPTIRAY 320 IV PRN (12:30)
[2016-12-01] MEDS ORDERED: ACET-1311 PO (12:37)
[2016-12-01] MEDS ORDERED: CYCL5TAB PO (12:37)
[2016-12-01] MEDS ORDERED: DPH/ PO (12:37)
[2016-12-01] MEDS ORDERED: ONDANSETRON INJ 2 MG/ML 2 ML VIAL IV STA (13:34)
[2016-12-01] MEDS ORDERED: MoRPHine SULFATE 4 MG/ML 1 ML CARP\\VIAL IV STA (13:34)
[2016-12-01 14:55] LABS: URINE APPEARANCE CLOUDY (CLEAR); URINE EPITHELIAL CELL AUTO >30 /lpf (0-5); URINE NITRITE POS (NEG); UROBILINOGEN NEG (NEG); ZZUR CULT IF INDIC CLEAN CATCH YES
[2016-12-01] MEDS ORDERED: POTASSIUM CHLORIDE 10 MEQ / 100ML WTR IV STA (14:55)
[2016-12-01 15:08] LABS: URINE BILIRUBIN 1+ (NEG)
[2016-12-01 15:09] LABS: MANUAL MICROSCOPIC REQUIRED? NO; REVIEW REQ? YES; URINE COLOR AMBER
[2016-12-01 15:18] LABS: URINE MUCUS PRESENT (NONE PRSENT)
--- NOTE | 2016-12-01 15:47 | DIAGNOSTIC IMAGING REPORT ---
ABDOMEN AND PELVIS CT WITH ORAL CONTRAST CT DOSE: 1250.98 mGycm HISTORY: Left lower quadrant abdominal pain. TECHNIQUE: Multiaxial CT images of the abdomen and pelvis were performed following the use of oral contrast. COMPARISON STUDY: None. FINDINGS: Small focal densities at the lung bases. This may represent mild dependent change. Small amount of pneumoperitoneum seen within the anterior abdomen. No suspicious lytic or blastic osseous lesions. Fat containing lesion within the left erector spinae muscles is consistent with a lipoma. The unenhanced liver, spleen, gallbladder, kidneys, pancreas, and adrenal glands are unremarkable. No retroperitoneal lymphadenopathy. The bladder is decompressed and not well evaluated. The uterus appears to be surgically absent. Focal area of pericolonic fat stranding at the proximal sigmoid colon. This likely represents acute diverticulitis. There is also a second area of pericolonic fat stranding with a 3 cm adjacent extraluminal collection of gas bubbles at the distal sigmoid colon within the right deep pelvis. This is best in image 403. This likely represents a second area of perforated acute diverticulitis which likely results in the free air. There is a gas and fluid collection within the mid deep pelvis centered above the bladder. This area measures 6.1 x 3.5 cm and is consistent with an abscess. There are few finger like extensions of the abscess extending to the right pelvic sidewall and surrounding the cecum. There is moderate thickening of the cecum and moderate thickening within a short segment of adjacent small bowel loop at the deep pelvis. This is likely reactive to the adjacent abscess/inflammatory change. The appendix is not identified. A few mildly distended loops of small bowel within the midabdomen which likely represents a partial small bowel obstruction with the transition point at the thickened small bowel loop in the deep pelvis. However contrast extends into the colon. IMPRESSION: 1. Perforated acute diverticulitis at the distal sigmoid colon with an adjacent 3 cm extraluminal collection of gas bubbles. This site likely results in the free air. There is a second area of mild acute diverticulitis of the proximal sigmoid colon which does not appear perforated. 2. There is an associated 6.1 x 3.5 cm abscess centered above the bladder. There are few finger like extensions of the abscess which extend to the right pelvic sidewall and surrounds the cecum. The moderate thickening of the cecum and adjacent loop of small bowel at the deep pelvis is likely reactive. This abscess/abscesses are not amenable to percutaneous drainage. 3. Partial small bowel obstruction with the transition point at the thickened loop of small bowel within the deep pelvis. However, contrast is seen extending into the large bowel. 4. Of note, the appendix is not identified. Therefore, these findings could also be seen in the setting of perforated acute appendicitis. However, this is considered less likely given the overall appearance of the abnormalities. In addition, the uterus is surgically absent which favors prior appendectomy. Clinical correlation recommended. Electronically signed by: Maxi Zhang M.D. 12/01/2016 3:45 PM Dictated Date/Time: 12/01/2016 3:27 PM
[2016-12-01 15:59] LABS: ISTAT CREATININE 1.5 mg/dl (0.6-1.3); ISTAT HEMOGLOBIN 14.3 g/dl (12.0-16.0); ISTAT IONIZED CALCIUM 1.08 mmol/l (1.12-1.32)
[2016-12-01 16:05] VITALS: O2SAT 95
[2016-12-01] MEDS ORDERED: PIPERACILLIN/TAZOBACTAM 4.5 GM/100ML D5W IV STA (16:21)
[2016-12-01] MEDS ORDERED: SODIUM CHLORIDE 0.9% 1000ML 1,000 ML IV STA (17:20)
[2016-12-01] MEDS ORDERED: FENTANYL CITRATE INJ 50 MCG/1 ML 2 ML VIAL IV STA (17:34)
[2016-12-01 17:35] VITALS: PULSE 104
[2016-12-01 17:52] VITALS: BP 109/64
--- NOTE | 2016-12-01 19:04 | EMERGENCY ROOM VISIT NOTE ---
History Report prepared by Arina: Lily Santos Under the Supervision of: Dr. Mateus Evans M.D. First contact with patient: 11:58 Chief Complaint: ABDOMINAL PAIN Stated Complaint: WEAKNESS, ABD. PAIN - RECENT DISCHARGE Nursing Triage Summary: patient recently discharged from [facility] for PE, pateint reports viral-like and GI symptoms since Tuesday evening including lower abdominal pain, diarrhea, and generalized weakness. Patient denies chest pain, denies increased SOB. History of Present Illness The patient is a 61 year old female who presents to the Emergency Room with complaints of persistent lower abdominal pain that started two days ago. She describes this pain as a cramping sensation. It is worse with movement. Associated symptoms include diarrhea, weakness, and lack of appetite. The patient was recently discharged from [facility] with a diagnosis of bilateral pulmonary emboli and a left leg DVT. The patient denies hematochezia, melena, vomiting, chest pain, shortness of breath, and additional associated symptoms. The patient currently takes Xarelto as prescribed. Source of History: patient Onset: 2 days ago Position: abdomen Symptom Intensity: moderate Quality: cramping Timing: other (Persistent ) Modifying Factors (Worsening): movement Associated Symptoms: + diarrhea, + weakness, No SOB, No chest pain, No hematochezia, No melena Review of Systems See HPI for pertinent positives & negatives. A total of 10 systems reviewed and were otherwise negative. Past Medical & Surgical Medical Problems: (1) Bilateral pulmonary embolism (2) DVT (deep venous thrombosis) (3) Hypoxia Family History FH: diabetes mellitus FH: heart disease Social History Smoking Status: Never Smoker Alcohol Use: none Drug Use: none Marital Status: Occupation Status: retired Current/Historical Medications Scheduled Bupropion (Wellbutrin-Xl), 150 MG PO DAILY Cyclobenzaprine Hcl (Flexeril), 5 MG PO TID Hydrochlorothiazide (Hctz), 25 MG PO DAILY Latanoprost (Xalatan 0.005% Oph Kaylene), 1 DROPS OP HS Levothyroxine Sodium (Synthroid), 75 MCG PO DAILYBB Lovastatin (Mevacor), 40 MG PO PM Magnesium Oxide (Mag-Ox), 400 MG PO HS Meloxicam (Mobic), 15 MG PO PM Metoprolol Tartrate (Lopressor) (Lopressor), 25 MG PO BID Rivaroxaban (Xarelto), 15 MG PO BIDM Rivaroxaban (Xarelto), 20 MG PO DAILY [Lovaza], 1 GM BID Miscellaneous Medications Acetaminophen (Tylenol), 325 MG PO Diphenoxylate W/ Atropine (Lomotil), 2 TAB PO Allergies Coded Allergies: No Known Allergies (Unverified , 12/01/16) Physical Exam Vital Signs Date Time Temp Pulse Resp B/P Pulse Ox O2 Delivery O2 Flow Rate FiO2 12/01/16 17:52 109/64 12/01/16 17:50 86/62 12/01/16 17:35 104 28 12/01/16 17:05 102 21 12/01/16 16:35 101 37 12/01/16 16:32 143/72 12/01/16 16:24 114/71 12/01/16 16:09 96 12/01/16 16:05 95 29 95 12/01/16 16:00 98 20 96/61 95 Room Air 12/01/16 15:33 96/61 12/01/16 14:15 65 20 154/72 96 Room Air 12/01/16 12:21 84 20 108/59 92 Room Air 12/01/16 11:11 36.7 86 18 89/64 90 Room Air Physical Exam Constitutional: Vital signs reviewed. Eyes: Pupils are equal round reactive to light. Conjunctiva are noninjected. ENT: Pharynx is clear without erythema or exudate. Mucous membranes are moist. Neck supple without meningeal signs. Respiratory: Clear to auscultation bilaterally. Breath sounds are equal bilaterally. Cardiovascular: Regular rate and rhythm. No rubs or gallops. GI: LLQ tenderness, no guarding, soft, nondistended. Bowel sounds are present. Musculoskeletal: No peripheral edema. Integumentary: No cyanosis. Neurological: The patient is awake and alert. No focal deficits. Psychiatric: Normal affect. Medical Decision & Procedures ER Provider Diagnostic Interpretation: CT results as stated below per interpretation by me and the radiologist: ABDOMEN AND PELVIS CT WITH ORAL CONTRAST CT DOSE: 1250.98 mGycm HISTORY: Left lower quadrant abdominal pain. TECHNIQUE: Multiaxial CT images of the abdomen and pelvis were performed following the use of oral contrast. COMPARISON STUDY: None. FINDINGS: Small focal densities at the lung bases. This may represent mild dependent change. Small amount of pneumoperitoneum seen within the anterior abdomen. No suspicious lytic or blastic osseous lesions. Fat containing lesion within the left erector spinae muscles is consistent with a lipoma. The unenhanced liver, spleen, gallbladder, kidneys, pancreas, and adrenal glands are unremarkable. No retroperitoneal lymphadenopathy. The bladder is decompressed and not well evaluated. The uterus appears to be surgically absent. Focal area of pericolonic fat stranding at the proximal sigmoid colon. This likely represents acute diverticulitis. There is also a second area of pericolonic fat stranding with a 3 cm adjacent extraluminal collection of gas bubbles at the distal sigmoid colon within the right deep pelvis. This is best in image 403. This likely represents a second area of perforated acute diverticulitis which likely results in the free air. There is a gas and fluid collection within the mid deep pelvis centered above the bladder. This area measures 6.1 x 3.5 cm and is consistent with an abscess. There are few finger like extensions of the abscess extending to the right pelvic sidewall and surrounding the cecum. There is moderate thickening of the cecum and moderate thickening within a short segment of adjacent small bowel loop at the deep pelvis. This is likely reactive to the adjacent abscess/inflammatory change. The appendix is not identified. A few mildly distended loops of small bowel within the midabdomen which likely represents a partial small bowel obstruction with the transition point at the thickened small bowel loop in the deep pelvis. However contrast extends into the colon. IMPRESSION: 1. Perforated acute diverticulitis at the distal sigmoid colon with an adjacent 3 cm extraluminal collection of gas bubbles. This site likely results in the free air. There is a second area of mild acute diverticulitis of the proximal sigmoid colon which does not appear perforated. 2. There is an associated 6.1 x 3.5 cm abscess centered above the bladder. There are few finger like extensions of the abscess which extend to the right pelvic sidewall and surrounds the cecum. The moderate thickening of the cecum and adjacent loop of small bowel at the deep pelvis is likely reactive. This abscess/abscesses are not amenable to percutaneous drainage. 3. Partial small bowel obstruction with the transition point at the thickened loop of small bowel within the deep pelvis. However, contrast is seen extending into the large bowel. 4. Of note, the appendix is not identified. Therefore, these findings could also be seen in the setting of perforated acute appendicitis. However, this is considered less likely given the overall appearance of the abnormalities. In addition, the uterus is surgically absent which favors prior appendectomy. Clinical correlation recommended. Electronically signed by: Maxi Zhang M.D. 12/01/2016 3:45 PM Dictated Date/Time: 12/01/2016 3:27 PM Laboratory Results 12/01/16 11:35 Red Blood Count 5.20, Mean Corpuscular Volume 82.5, Mean Corpuscular Hemoglobin 29.8, Mean Corpuscular Hemoglobin Concent 36.1, Mean Platelet Volume 9.5, Neutrophils (%) (Auto) 89.5, Lymphocytes (%) (Auto) 7.3, Monocytes (%) (Auto) 2.7, Eosinophils (%) (Auto) 0.0, Basophils (%) (Auto) 0.1, Neutrophils # (Auto) 10.49, Lymphocytes # (Auto) 0.86, Monocytes # (Auto) 0.32, Eosinophils # (Auto) 0.00, Basophils # (Auto) 0.01 12/01/16 11:35 Test 12/01/16 11:35 12/01/16 13:30 12/01/16 14:23 White Blood Count 11.73 K/uL (4.8-10.8) Red Blood Count 5.20 M/uL (4.2-5.4) Hemoglobin 15.5 g/dL (12.0-16.0) Hematocrit 42.9 % (37-47) Mean Corpuscular Volume 82.5 fL (80-100) Mean Corpuscular Hemoglobin 29.8 pg (25-34) Mean Corpuscular Hemoglobin Concent 36.1 g/dl (32-36) Platelet Count 272 K/uL (130-400) Mean Platelet Volume 9.5 fL (7.4-10.4) Neutrophils (%) (Auto) 89.5 % Lymphocytes (%) (Auto) 7.3 % Monocytes (%) (Auto) 2.7 % Eosinophils (%) (Auto) 0.0 % Basophils (%) (Auto) 0.1 % Neutrophils # (Auto) 10.49 K/uL (1.4-6.5) Lymphocytes # (Auto) 0.86 K/uL (1.2-3.4) Monocytes # (Auto) 0.32 K/uL (0.11-0.59) Eosinophils # (Auto) 0.00 K/uL (0-0.5) Basophils # (Auto) 0.01 K/uL (0-0.2) RDW Standard Deviation 42.4 fL (36.4-46.3) RDW Coefficient of Variation 14.0 % (11.5-14.5) Immature Granulocyte % (Auto) 0.4 % Immature Granulocyte # (Auto) 0.05 K/uL (0.00-0.02) Est Creatinine Clear Calc Drug Dose 42.8 ml/min Estimated GFR () 34.1 Estimated GFR (Non- 29.4 BUN/Creatinine Ratio 13.0 (10-20) Calcium Level 9.1 mg/dl (8.5-10.1) Total Bilirubin 1.3 mg/dl (0.2-1) Aspartate Amino Transf (AST/SGOT) 19 U/L (15-37) Alanine Aminotransferase (ALT/SGPT) 60 U/L (12-78) Alkaline Phosphatase 91 U/L (45-117) Total Protein 7.1 gm/dl (6.4-8.2) Albumin 3.1 gm/dl (3.4-5.0) Globulin 4.0 gm/dl (2.5-4.0) Albumin/Globulin Ratio 0.8 (0.9-2) Lipase 63 U/L (73-393) Urine Color MILKA Urine Appearance CLOUDY (CLEAR) Urine pH 5.0 (4.5-7.5) Urine Specific [place] 1.020 (1.000-1.030) Urine Protein 1+ (NEG) Urine Glucose (UA) NEG (NEG) Urine Ketones NEG (NEG) Urine Occult Blood TRACE (NEG) Urine Nitrite POS (NEG) Urine Bilirubin 1+ (NEG) Urine Urobilinogen NEG (NEG) Urine Leukocyte Esterase MODERATE (NEG) Urine WBC (Auto) >30 /hpf (0-5) Urine RBC (Auto) 0-4 /hpf (0-4) Urine Hyaline Casts (Auto) 10-30 /lpf (0-5) Urine Epithelial Cells (Auto) >30 /lpf (0-5) Urine Bacteria (Auto) 4+ (NEG) Urine Pathogenic Casts /lpf (0) Urine Mucus PRESENT (NONE PRSENT) Bedside Hemoglobin 14.3 g/dl (12.0-16.0) Bedside Hematocrit 42 % (37-47) Bedside Sodium 131 mEq/L (135-144) Bedside Potassium 3.2 mEq/L (3.3-5.0) Bedside Chloride 90 mEq/L (101-112) Bedside Total CO2 26 mEq/l (24-31) Anion Gap 20.0 mmol/L (16-25) Bedside Blood Urea Nitrogen 25 mg/dl (7-18) Bedside Creatinine 1.5 mg/dl (0.6-1.3) Bedside Glucose (other) 149 mg/dl (70-99) Bedside Ionized Calcium (Jessy) 1.08 mmol/l (1.12-1.32) Laboratory results as reviewed by me. Medications Administered Medications (Trade) Dose Ordered Sig/Dede Route Start Time Stop Time Status Last Admin Dose Admin Sodium Chloride (Nss 500ml) 500 ml @ 999 mls/hr Q31M STAT IV 12/01/16 12:07 12/01/16 12:37 DC 12/01/16 12:21 999 MLS/HR Morphine Sulfate (MoRPHine SULFATE INJ) 4 mg NOW STAT IV 12/01/16 13:34 12/01/16 13:36 DC 12/01/16 13:43 4 MG Ondansetron HCl (Zofran Inj) 4 mg NOW STAT IV 12/01/16 13:34 12/01/16 13:36 DC 12/01/16 13:43 4 MG Potassium Chloride (Kcl 10 Meq / Wtr) 10 meq NOW STAT IV 12/01/16 14:55 12/01/16 14:56 DC 12/01/16 15:40 10 MEQ Piperacillin Sod/ Tazobactam Sod 4.5 gm 4.5 gm NOW STAT IV 12/01/16 16:21 12/01/16 16:28 DC 12/01/16 16:37 4.5 GM Sodium Chloride (Nss 1000ml) 1,000 ml @ 999 mls/hr Q1H1M STAT IV 12/01/16 17:20 12/01/16 18:20 DC 12/01/16 17:30 999 MLS/HR Fentanyl Citrate (Fentanyl Inj) 50 mcg NOW STAT IV 12/01/16 17:34 12/01/16 17:35 DC 12/01/16 17:50 50 MCG ED Course 1203: The patient was evaluated in room C12. A complete history and physical exam was performed. 1207: Ordered Sodium Chloride 500 ml @ 999 mls/hr IV. 1334: Ordered Zofran Injection 4 mg IV, Morphine Sulfate 4 mg IV. 1455: Ordered Potassium Chloride 10 meq IV. 1621: Ordered Zosyn IV 4.5 gm IV. 1627: The patient's blood pressure is currently 114/71 with a HR of 103. I updated her on her CT results. She is agreeable with the treatment plan at this time. 1634: I spoke with Dr. Viera (Surgery). We discussed the patient and her results. He recommended transfer to a tertiary care center for percutaneous drainage or the abscess. 1639: The patient's blood pressure is now 143/72. She is agreeable with the transfer to [facility]. 1714: I discussed the patient's case with Dr. Ram (Colorectal Surgery, [place]). He will accept the patient but does not have an ICU or ED bed available at this time. He expects a SICU bed to open up within the next few hours. He will call back when this bed opens up. 1733: Discussed this with the patient; she is okay waiting. Upon reexamination, the patient is still experiencing localized tenderness to llq, no rebound. Slightly tachycardic and hypertensive. Normal mentation. 1742: A SICU bed has opened up. The patient will be transferred to [place]. Medical Decision This is a 61-year-old female presents with lower abdominal pain and diarrhea. Differential diagnosis includes diverticulitis, abscess, perforation, colitis, dehydration. I did perform a limited focused review of portions of the patient' s old chart on the electronic medical record. The patient was evaluated at [facility] on November 26 with bilateral pulmonary emboli, left leg DVT, positive troponin, and an ECG that shows right ventricular strain. Sent home on Xarelto. I did evaluate the patient as noted above. The patient has tenderness in the left lower quadrant. She has no peritoneal signs. IV access was established. The patient is slightly hypotensive and was given a bolus of normal saline IV. She was also given morphine and Zofran IV. I did order and personally review the patient's urinalysis as described above. She does appear to have a UTI. I did order and review the patient's blood work as noted in the electronic medical record. Her white blood cell count is slightly elevated. Her sodium, potassium are slightly low. Her creatinine was elevated. I did repeat this blood work to ensure its accuracy. She was then given IV KCl. I did order a CT of the abdomen and pelvis. I did review the images myself as well as the radiology report as described above. The patient has perforated diverticulitis with extraluminal air as well as an intra-abdominal abscess and partial small bowel obstruction. I did treat the patient with IV Zosyn. I did reexamine the patient. She does not have any peritoneal signs on exam. She did have recurrent pain and requested some pain medicine. She was given fentanyl IV as well as a liter bolus of normal saline IV. Her blood pressure improved although she was tachycardic. I did discuss the case with Dr. Viera of surgery who felt that the patient's best interest would be served by transfer to a tertiary care center for percutaneous drainage of the abscess. I did discuss this with the patient and her . They were agreeable to transfer to [facility]. I did discuss the case with Dr. Grider at [facility] colorectal surgery who accepted the patient for transfer. She was transferred via [facility] ambulance with continued IV fluids and pain management in stable condition. She will go to the SICU there. Consults Time Called: 1620 Consulting Physician: Dr. Viera (Surgery) Returned Call: [address] Viera (Surgery). We discussed the patient and her results. He recommended transfer to a tertiary care center for percutaneous drainage or the abscess. Additional Consults: Time Called: 1712 Consulted Physician: Dr. Ram (Colorectal Surgery, [place]) Returned Call: 1710 Additional Comments: I discussed the patient's case with Dr. Ram (Colorectal Surgery, [place]). He will accept the patient but does not have an ICU or ED bed available at this time. He expects a SICU bed to open up within the next few hours. He will call back when this bed opens up. Impression Primary Impression: Diverticulitis Additional Impressions: Partial small bowel obstruction Anticoagulated UTI (urinary tract infection) Hypokalemia Hyponatremia Critical Care I have personally spent greater than 30 minutes of critical care time in the direct management of this patient. This includes bedside care, interpretation of diagnostic studies, and testing, discussion with consultants, patient, and family members, and other required patient management activities. This 30 minutes is in excess of all separately billable procedures. Scribe Attestation The scribe's documentation has been prepared under my direct and personally reviewed by me in its entirety. I confirm that the note above accurately reflects all work, treatment, procedures, and medical decision making performed by me. Departure Information Dispostion Transfer Acute Care Facility Referrals Ean Jacobs M.D. (PCP) Patient Instructions My [facility] [address] Problem Qualifiers Primary Impression: Diverticulitis Diverticulitis site: large intestine Diverticulitis bleeding: without bleeding Diverticulitis complication: with perforation and abscess Qualified Codes: K57.20 - Diverticulitis of large intestine with perforation and abscess without bleeding
== END 2016-12-01 18:44 | disposition short-term general hospital (02) ==
LOC: C.EDB 11:07 → C.EDC 18:44
DX: K57.20 Diverticulitis of large intestine with perforation and abscess without bleeding (principal); K56.60 Unspecified intestinal obstruction; N39.0 Urinary tract infection, site not specified; E87.6 Hypokalemia; E87.1 Hypo-osmolality and hyponatremia; I26.99 Other pulmonary embolism without acute cor pulmonale; I82.409 Acute embolism and thrombosis of unspecified deep veins of unspecified lower extremity; Z79.01 Long term (current) use of anticoagulants; Z79.899 Other long term (current) drug therapy; Z82.49 Family history of ischemic heart disease and other diseases of the circulatory system; Z83.3 Family history of diabetes mellitus